=== PATIENT | female | born 1995 | race American Indian/Alaskan Native ===

== ENCOUNTER 2022-04-07 09:16 | Emergency (ER) | payer MEDICAID ==
[2022-04-07 09:53] LABS: AMPHETAMINES,URINE NEGATIVE (NEGATIVE); BARBITURATES,URINE NEGATIVE (NEGATIVE); BENZODIAZEPINE,URINE NEGATIVE (NEGATIVE); MDMA (ECSTASY), URINE NEGATIVE (NEGATIVE); METHADONE,URINE NEGATIVE (NEGATIVE); METHAMPHETAMINES,URINE NEGATIVE (NEGATIVE); OPIATES,URINE NEGATIVE (NEGATIVE); OXYCODONE,URINE NEGATIVE (NEGATIVE); PHENCYCLIDINE,URINE NEGATIVE (NEGATIVE); TCA,URINE NEGATIVE (NEGATIVE)
[2022-04-07 10:05] LABS: ANION GAP 13.6 mEq/L (7-13); CHLORIDE,CL 104 mmol/L (98-107); SODIUM,NA 138 mmol/L (136-145)
[2022-04-07 10:07] LABS: ESTIMATED GFR 96 mL/min (>=60)
[2022-04-07 10:17] VITALS: BP 128/77; PULSE 78
[2022-04-07 11:06] LABS: CORONAVIRUS COVID-19 NAA NEGATIVE (NEGATIVE)
== END 2022-04-07 11:12 | disposition home or self-care (01) ==
LOC: DL.ED 09:16
DX: S29.011A Strain of muscle and tendon of front wall of thorax, initial encounter (principal); Z88.6 Allergy status to analgesic agent; Z88.0 Allergy status to penicillin; Z20.822 Contact with and (suspected) exposure to COVID-19
CPT/HCPCS: 0240U; 36415; 71045; 80053; 80305; 80307; 81001; 81025; 83605; 84484; 85025; 85379; 93005; 99285

== ENCOUNTER 2023-08-29 22:58 | Emergency (ER) | payer BC, MEDICAID, OTHER ==
[2023-08-30] MEDS: Sodium Chloride 0.9% 10 ML Syringe FLUSH PRN (00:25)
[2023-08-30] MEDS: diphenhydrAMINE 50 MG/ML SDV IVPUSH ONE (00:26)
[2023-08-30] MEDS: Sodium Chloride 0.9% 1,000 ML IV ONE (00:26)
[2023-08-30] MEDS: Ondansetron 4 MG/2 ML SDV IVPUSH ONE (00:26)
[2023-08-30] MEDS: Acetaminophen 500 MG Tab PO ONE (00:26)
[2023-08-30] MEDS: Take Home: Clindamycin HCl 150 MG, 12 Cap Pack PO ONE (00:37)
[2023-08-30 02:09] VITALS: BP 129/67; PULSE 75
== END 2023-08-30 02:00 | disposition home or self-care (01) ==
LOC: DL.ED 22:58
DX: G43.909 Migraine, unspecified, not intractable, without status migrainosus (principal); Z88.6 Allergy status to analgesic agent; Z88.0 Allergy status to penicillin; Z90.49 Acquired absence of other specified parts of digestive tract; Z87.891 Personal history of nicotine dependence; Z79.899 Other long term (current) drug therapy
CPT/HCPCS: 81025; 96361; 96374; 96375; 99284; A9270; J1200; J2405; J7030; 99283; J3490